=== PATIENT | female | born 1980 | race Caucasian/White ===

== ENCOUNTER 2023-09-25 05:55 | Day surgery (SDC) | payer BC, OTHER ==
[2023-09-25] MEDS ORDERED: fentaNYL 100 MCG/2 ML SDV IV ONE (05:56)
[2023-09-25] MEDS ORDERED: Midazolam 1 MG/ML 2 ML SDV IV ONE (05:56)
[2023-09-25] MEDS ORDERED: Midazolam 1 MG/ML 2 ML SDV ONE (06:15)
[2023-09-25] MEDS ORDERED: fentaNYL 100 MCG/2 ML SDV ONE (06:16)
[2023-09-25] MEDS: Dextrose 5%-0.45% NaCl 1,000 ML IV SCH (06:25)
[2023-09-25] MEDS: fentaNYL 100 MCG/2 ML SDV IV ONE ×4 (07:04→07:14)
[2023-09-25] MEDS: Midazolam 1 MG/ML 2 ML SDV IV ONE ×6 (07:05→07:11)
== END 2023-09-25 08:50 | disposition home or self-care (01) ==
LOC: DL.ENDO 05:55
PROVIDERS: ATTEND Internal Medicine Gastroenterology
DX: K62.1 Rectal polyp (principal); K63.5 Polyp of colon; K52.9 Noninfective gastroenteritis and colitis, unspecified; F41.1 Generalized anxiety disorder; F32.A Depression, unspecified; G47.00 Insomnia, unspecified; Z88.8 Allergy status to other drugs, medicaments and biological substances; Z80.0 Family history of malignant neoplasm of digestive organs; Z98.890 Other specified postprocedural states
CPT/HCPCS: 45380; 45385; J2250; J3010; J7042

== ENCOUNTER 2023-10-12 05:23 | Day surgery (SDC) | payer BC ==
[2023-10-12] MEDS ORDERED: Midazolam 1 MG/ML 2 ML SDV IV ONE (05:24)
[2023-10-12] MEDS ORDERED: fentaNYL 100 MCG/2 ML SDV IV ONE (05:24)
[2023-10-12] MEDS: Dextrose 5%-0.45% NaCl 1,000 ML IV SCH (05:47)
[2023-10-12] MEDS ORDERED: fentaNYL 100 MCG/2 ML SDV ONE (06:15)
[2023-10-12] MEDS ORDERED: Midazolam 1 MG/ML 2 ML SDV ONE (06:15)
[2023-10-12] MEDS: fentaNYL 100 MCG/2 ML SDV IV ONE ×2 (06:28→06:29)
[2023-10-12] MEDS: Midazolam 1 MG/ML 2 ML SDV IV ONE ×2 (06:29→06:30)
== END 2023-10-12 08:00 | disposition home or self-care (01) ==
LOC: DL.ENDO 05:23
PROVIDERS: ATTEND Internal Medicine Gastroenterology
DX: K52.9 Noninfective gastroenteritis and colitis, unspecified (principal); F32.A Depression, unspecified; F41.9 Anxiety disorder, unspecified
CPT/HCPCS: 43239; 87077; J2250; J3010; J7042